=== PATIENT | male | born 1975 | race Two or more races ===

== ENCOUNTER 2021-05-04 11:00 | Inpatient (IN) | payer OTHER ==
[2021-05-04 12:04] VITALS: BMI 21.7
[2021-05-04] MEDS ORDERED: ACETAMINOPHEN 325 MG TABLET (FP) PO PRN ×2 (13:43)
[2021-05-04] MEDS ORDERED: ONDANSETRON *ODT* 4 MG TABLET SL PRN (13:43)
[2021-05-04] MEDS ORDERED: NICOTINE 10 MG CARTRIDGE (INHALER) IH PRN (13:43)
[2021-05-04] MEDS ORDERED: chlordiazePOXIDE HCL 25 MG CAPSULE PO PRN (13:43)
[2021-05-04] MEDS ORDERED: MAGNESIUM CITRATE 300 ML BOTTLE PO PRN (13:43)
[2021-05-04] MEDS ORDERED: MAGNESIUM HYDROX 2400MG/30ML ORAL SUSPENSION 30 ML CUP PO PRN (13:43)
[2021-05-04] MEDS ORDERED: MENTHOL/PHENOL 1 EACH UD MM PRN (13:43)
[2021-05-04] MEDS ORDERED: BISMUTH SUBSALICYLATE 524 MG/30 ML PO PRN (13:43)
[2021-05-04] MEDS ORDERED: MAG HYDROX/AL HYDROX/SIMETH 30 ML UNIT-DOSE CUP PO PRN (13:43)
[2021-05-04] MEDS ORDERED: LOPERAMIDE HCL 2 MG CAPSULE PO PRN (13:43)
[2021-05-04] MEDS ORDERED: IBUPROFEN 400 MG TABLET (FP) PO PRN (13:43)
[2021-05-04] MEDS: METHOCARBAMOL 500 MG TABLET PO PRN (15:13)
[2021-05-04] MEDS: BACITRACIN 0.9 GM PACKET TP SCH ×2 (15:13→22:42)
[2021-05-04] MEDS: hydrOXYzine PAMOATE 25 MG CAPSULE (FP) PO SCH ×3 (15:19→22:50)
[2021-05-04] MEDS: CEPHALEXIN MONOHYDRATE 500 MG CAPSULE (UD) PO SCH ×2 (17:40→22:40)
[2021-05-04] MEDS: chlordiazePOXIDE HCL 25 MG CAPSULE PO SCH ×2 (17:41→22:40)
[2021-05-04] MEDS: THIAMINE HCL 100 MG TABLET (FP) PO SCH (22:40)
[2021-05-04] MEDS: MELATONIN 5 MG TABLETS PO SCH (22:42)
[2021-05-05] MEDS: chlordiazePOXIDE HCL 25 MG CAPSULE PO SCH ×4 (06:12→22:12)
[2021-05-05] MEDS: hydrOXYzine PAMOATE 25 MG CAPSULE (FP) PO SCH ×5 (06:13→22:11)
[2021-05-05] MEDS: BACITRACIN 0.9 GM PACKET TP SCH ×2 (10:23→22:16)
[2021-05-05] MEDS: PRENATAL VITAMINS W/ FOLIC ACID TABLET (FP) PO SCH (10:23)
[2021-05-05] MEDS: CEPHALEXIN MONOHYDRATE 500 MG CAPSULE (UD) PO SCH ×4 (10:24→22:11)
[2021-05-05 10:26] LABS: HEMATOCRIT 36.3 % (35.4-49); HEMOGLOBIN 12.4 GM/dL (11.7-16.9); MCH 35.7 pg (25.7-33.7); MCHC 34.3 g/dl (32.0-35.9); MEAN PLT VOLUME 8.8 fl (7.5-11.1); PLATELET COUNT 208 10^3/uL (134-434); RBC 3.49 M/mm3 (4.00-5.60); RDW 13.3 % (11.9-15.9); WHITE BLOOD COUNT 3.9 K/mm3 (4.0-10.0)
[2021-05-05 11:27] LABS: ALBUMIN 3.1 g/dl (3.4-5.0); BILIRUBIN,TOTAL 0.3 mg/dL (0.2-1); CALCIUM 8.9 mg/dL (8.5-10.1); CREATININE 0.8 mg/dL (0.55-1.3); TOT PROT 5.8 g/dl (6.4-8.2)
[2021-05-05 13:10] LABS: PH,URINE 5.5 (5.0-8.0); URINE APPEARANCE CLEAR; URINE BILIRUBIN NEGATIVE (NEGATIVE); URINE COLOR YELLOW; URINE GLUCOSE (UA) NEGATIVE (NEGATIVE); URINE KETONE NEGATIVE (NEGATIVE); URINE LEUK ESTERASE NEGATIVE (NEGATIVE); URINE NITRITE NEGATIVE (NEGATIVE); URINE PROTEIN NEGATIVE (NEGATIVE); URINE UROBILINOGEN 0.2 mg/dL (0.2-1.0)
[2021-05-05] MEDS: THIAMINE HCL 100 MG TABLET (FP) PO SCH (22:11)
[2021-05-05] MEDS: MELATONIN 5 MG TABLETS PO SCH (22:12)
[2021-05-06] MEDS: hydrOXYzine PAMOATE 25 MG CAPSULE (FP) PO SCH ×5 (05:46→22:22)
[2021-05-06] MEDS: chlordiazePOXIDE HCL 25 MG CAPSULE PO SCH ×4 (05:46→22:23)
[2021-05-06 06:09] LABS: SARS-CoV-2 NAA Not Detected (Not Detected)
[2021-05-06] MEDS: PRENATAL VITAMINS W/ FOLIC ACID TABLET (FP) PO SCH (10:15)
[2021-05-06] MEDS: CEPHALEXIN MONOHYDRATE 500 MG CAPSULE (UD) PO SCH ×4 (10:15→22:23)
[2021-05-06] MEDS: BACITRACIN 0.9 GM PACKET TP SCH ×2 (10:15→22:23)
[2021-05-06] MEDS: THIAMINE HCL 100 MG TABLET (FP) PO SCH (22:22)
[2021-05-06] MEDS: MELATONIN 5 MG TABLETS PO SCH (22:23)
[2021-05-07] MEDS ORDERED: chlordiazePOXIDE HCL 10 MG CAPSULE PO PRN
[2021-05-07] MEDS: chlordiazePOXIDE HCL 10 MG CAPSULE PO SCH ×4 (05:45→22:57)
[2021-05-07] MEDS: hydrOXYzine PAMOATE 25 MG CAPSULE (FP) PO SCH ×5 (05:45→22:54)
[2021-05-07] MEDS: CEPHALEXIN MONOHYDRATE 500 MG CAPSULE (UD) PO SCH ×4 (10:49→22:55)
[2021-05-07] MEDS: BACITRACIN 0.9 GM PACKET TP SCH ×2 (10:49→22:55)
[2021-05-07] MEDS: PRENATAL VITAMINS W/ FOLIC ACID TABLET (FP) PO SCH (10:49)
[2021-05-07] MEDS: MELATONIN 5 MG TABLETS PO SCH (22:54)
[2021-05-07] MEDS: THIAMINE HCL 100 MG TABLET (FP) PO SCH (22:55)
[2021-05-08] MEDS: chlordiazePOXIDE HCL 10 MG CAPSULE PO SCH ×2 (06:14→18:26)
[2021-05-08] MEDS: hydrOXYzine PAMOATE 25 MG CAPSULE (FP) PO SCH ×5 (06:14→22:15)
[2021-05-08] MEDS: BACITRACIN 0.9 GM PACKET TP SCH ×2 (10:28→22:15)
[2021-05-08] MEDS: CEPHALEXIN MONOHYDRATE 500 MG CAPSULE (UD) PO SCH ×4 (10:28→22:15)
[2021-05-08] MEDS: PRENATAL VITAMINS W/ FOLIC ACID TABLET (FP) PO SCH (10:29)
[2021-05-08] MEDS: THIAMINE HCL 100 MG TABLET (FP) PO SCH (22:15)
[2021-05-08] MEDS: MELATONIN 5 MG TABLETS PO SCH (22:16)
[2021-05-09] MEDS ORDERED: chlordiazePOXIDE HCL 10 MG CAPSULE PO ONE (05:00)
[2021-05-09] MEDS: hydrOXYzine PAMOATE 25 MG CAPSULE (FP) PO SCH ×2 (05:10→10:34)
[2021-05-09 06:22] VITALS: BP 102/69
[2021-05-09 10:00] VITALS: PULSE 74; TEMP 97.8
[2021-05-09] MEDS: BACITRACIN 0.9 GM PACKET TP SCH (10:34)
[2021-05-09] MEDS: METHOCARBAMOL 500 MG TABLET PO PRN (10:34)
[2021-05-09] MEDS: CEPHALEXIN MONOHYDRATE 500 MG CAPSULE (UD) PO SCH (10:34)
[2021-05-09] MEDS: PRENATAL VITAMINS W/ FOLIC ACID TABLET (FP) PO SCH (10:34)
== END 2021-05-09 12:50 | disposition other institution (70) | DRG 775 ==
LOC: YASAS 11:00 → Y6N 14:35
PROVIDERS: ADMIT Allergy & Immunology; ATTEND Allergy & Immunology
PROC: HZ2ZZZZ Detoxification Services for Substance Abuse Treatment (ICD-10-PCS; principal; 2021-05-04)
DX: F10.230 Alcohol dependence with withdrawal, uncomplicated (principal); F12.10 Cannabis abuse, uncomplicated; F17.210 Nicotine dependence, cigarettes, uncomplicated; F10.282 Alcohol dependence with alcohol-induced sleep disorder; F51.05 Insomnia due to other mental disorder; S00.81XD Abrasion of other part of head, subsequent encounter; S60.221D Contusion of right hand, subsequent encounter; X58.XXXD Exposure to other specified factors, subsequent encounter; Z59.00 Homelessness unspecified; Z56.0 Unemployment, unspecified
CPT/HCPCS: 36415; 80053; 81003; 85027; 86780; 87811; 93005; 93010; C9803-CS; U0003; U0005

== ENCOUNTER 2021-05-09 13:03 | Inpatient (IN) | payer OTHER ==
[2021-05-09] MEDS ORDERED: ACETAMINOPHEN 325 MG TABLET (FP) PO PRN (14:47)
[2021-05-09] MEDS ORDERED: P-EPHED 60MG/TRIPROLIDI 2.5MG TABLET PO PRN (14:47)
[2021-05-09] MEDS ORDERED: MAG HYDROX/AL HYDROX/SIMETH 30 ML UNIT-DOSE CUP PO PRN (14:47)
[2021-05-09] MEDS ORDERED: guaiFENesin 200 MG/10 ML 10 ML UNIT-DOSE CUPS PO PRN (14:47)
[2021-05-09] MEDS ORDERED: MAGNESIUM HYDROX 2400MG/30ML ORAL SUSPENSION 30 ML CUP PO PRN (14:47)
[2021-05-09] MEDS ORDERED: MENTHOL/PHENOL 1 EACH UD MM PRN (14:47)
[2021-05-09] MEDS ORDERED: LOPERAMIDE HCL 2 MG CAPSULE PO PRN (14:47)
[2021-05-09] MEDS ORDERED: MAGNESIUM CITRATE 300 ML BOTTLE PO PRN (14:47)
[2021-05-09] MEDS: CEPHALEXIN MONOHYDRATE 500 MG CAPSULE (UD) PO SCH ×2 (17:11→21:18)
[2021-05-09] MEDS: THIAMINE HCL 100 MG TABLET (FP) PO SCH (21:18)
[2021-05-09] MEDS: MELATONIN 5 MG TABLETS PO SCH (21:18)
[2021-05-10] MEDS: CEPHALEXIN MONOHYDRATE 500 MG CAPSULE (UD) PO SCH ×4 (10:00→21:32)
[2021-05-10] MEDS: PRENATAL VITAMINS W/ FOLIC ACID TABLET (FP) PO SCH (10:00)
[2021-05-10] MEDS: MELATONIN 5 MG TABLETS PO SCH (21:32)
[2021-05-10] MEDS: THIAMINE HCL 100 MG TABLET (FP) PO SCH (21:32)
[2021-05-10] MEDS: hydrOXYzine PAMOATE 25 MG CAPSULE (FP) PO PRN (21:32)
[2021-05-11] MEDS: hydrOXYzine PAMOATE 25 MG CAPSULE (FP) PO PRN ×2 (02:21→21:17)
[2021-05-11] MEDS: PRENATAL VITAMINS W/ FOLIC ACID TABLET (FP) PO SCH (10:00)
[2021-05-11] MEDS: CEPHALEXIN MONOHYDRATE 500 MG CAPSULE (UD) PO SCH ×2 (10:00→14:19)
[2021-05-11] MEDS: NICOTINE 10 MG CARTRIDGE (INHALER) IH PRN ×2 (17:19→21:23)
[2021-05-11] MEDS: MELATONIN 5 MG TABLETS PO SCH (21:16)
[2021-05-11] MEDS: THIAMINE HCL 100 MG TABLET (FP) PO SCH (21:16)
[2021-05-12] MEDS: hydrOXYzine PAMOATE 25 MG CAPSULE (FP) PO PRN ×2 (10:15→21:20)
[2021-05-12] MEDS: PRENATAL VITAMINS W/ FOLIC ACID TABLET (FP) PO SCH (10:15)
[2021-05-12] MEDS: NICOTINE 10 MG CARTRIDGE (INHALER) IH PRN (17:08)
[2021-05-12] MEDS: THIAMINE HCL 100 MG TABLET (FP) PO SCH (21:20)
[2021-05-12] MEDS: MELATONIN 5 MG TABLETS PO SCH (21:20)
[2021-05-13] MEDS: NICOTINE 10 MG CARTRIDGE (INHALER) IH PRN ×3 (05:34→21:20)
[2021-05-13] MEDS: PRENATAL VITAMINS W/ FOLIC ACID TABLET (FP) PO SCH (10:12)
[2021-05-13] MEDS: hydrOXYzine PAMOATE 25 MG CAPSULE (FP) PO PRN (10:12)
[2021-05-13 16:09] LABS: SARS-CoV-2 NAA Not Detected (Not Detected)
[2021-05-13] MEDS: THIAMINE HCL 100 MG TABLET (FP) PO SCH (21:19)
[2021-05-13] MEDS: SUVOREXANT 10 MG TABLET PO PRN (21:20)
[2021-05-14] MEDS: PRENATAL VITAMINS W/ FOLIC ACID TABLET (FP) PO SCH (09:57)
[2021-05-14] MEDS: hydrOXYzine PAMOATE 25 MG CAPSULE (FP) PO PRN (09:57)
[2021-05-14] MEDS: IBUPROFEN 400 MG TABLET (FP) PO PRN (09:58)
[2021-05-14] MEDS: NICOTINE 10 MG CARTRIDGE (INHALER) IH PRN (15:52)
[2021-05-14] MEDS: THIAMINE HCL 100 MG TABLET (FP) PO SCH (21:08)
[2021-05-14] MEDS: SUVOREXANT 10 MG TABLET PO PRN (21:08)
[2021-05-15] MEDS: hydrOXYzine PAMOATE 25 MG CAPSULE (FP) PO PRN ×3 (06:18→16:38)
[2021-05-15] MEDS: PRENATAL VITAMINS W/ FOLIC ACID TABLET (FP) PO SCH (10:07)
[2021-05-15] MEDS: NICOTINE 10 MG CARTRIDGE (INHALER) IH PRN (16:37)
[2021-05-15] MEDS: THIAMINE HCL 100 MG TABLET (FP) PO SCH (21:14)
[2021-05-15] MEDS: SUVOREXANT 10 MG TABLET PO PRN (21:14)
[2021-05-16] MEDS: NICOTINE 10 MG CARTRIDGE (INHALER) IH PRN ×2 (07:14→21:11)
[2021-05-16] MEDS: PRENATAL VITAMINS W/ FOLIC ACID TABLET (FP) PO SCH (10:41)
[2021-05-16] MEDS: hydrOXYzine PAMOATE 25 MG CAPSULE (FP) PO PRN ×2 (10:42→21:12)
[2021-05-16] MEDS: METHOCARBAMOL 500 MG TABLET PO PRN ×2 (14:25→21:12)
[2021-05-16] MEDS: THIAMINE HCL 100 MG TABLET (FP) PO SCH (21:11)
[2021-05-16] MEDS: SUVOREXANT 10 MG TABLET PO PRN (21:12)
[2021-05-17] MEDS: PRENATAL VITAMINS W/ FOLIC ACID TABLET (FP) PO SCH (10:08)
[2021-05-17] MEDS: hydrOXYzine PAMOATE 25 MG CAPSULE (FP) PO PRN ×3 (10:08→21:39)
[2021-05-17] MEDS: METHOCARBAMOL 500 MG TABLET PO PRN ×3 (10:08→21:40)
[2021-05-17] MEDS: NICOTINE 10 MG CARTRIDGE (INHALER) IH PRN (15:38)
[2021-05-17] MEDS: THIAMINE HCL 100 MG TABLET (FP) PO SCH (21:39)
[2021-05-17] MEDS: SUVOREXANT 10 MG TABLET PO PRN (21:40)
[2021-05-18] MEDS: NICOTINE 10 MG CARTRIDGE (INHALER) IH PRN ×3 (06:36→21:25)
[2021-05-18] MEDS: hydrOXYzine PAMOATE 25 MG CAPSULE (FP) PO PRN ×2 (09:58→15:57)
[2021-05-18] MEDS: METHOCARBAMOL 500 MG TABLET PO PRN ×3 (09:58→21:25)
[2021-05-18] MEDS: PRENATAL VITAMINS W/ FOLIC ACID TABLET (FP) PO SCH (09:58)
[2021-05-18] MEDS: THIAMINE HCL 100 MG TABLET (FP) PO SCH (21:23)
[2021-05-18] MEDS: SUVOREXANT 10 MG TABLET PO PRN (21:24)
[2021-05-19] MEDS: METHOCARBAMOL 500 MG TABLET PO PRN ×3 (06:54→21:11)
[2021-05-19] MEDS: PRENATAL VITAMINS W/ FOLIC ACID TABLET (FP) PO SCH (10:32)
[2021-05-19] MEDS: hydrOXYzine PAMOATE 25 MG CAPSULE (FP) PO PRN ×3 (10:33→23:19)
[2021-05-19] MEDS: NICOTINE 10 MG CARTRIDGE (INHALER) IH PRN ×2 (10:35→15:16)
[2021-05-19] MEDS: THIAMINE HCL 100 MG TABLET (FP) PO SCH (21:10)
[2021-05-19] MEDS: SUVOREXANT 10 MG TABLET PO PRN (21:11)
[2021-05-20] MEDS: PRENATAL VITAMINS W/ FOLIC ACID TABLET (FP) PO SCH (09:12)
[2021-05-20] MEDS: METHOCARBAMOL 500 MG TABLET PO PRN ×4 (09:14→21:18)
[2021-05-20] MEDS: hydrOXYzine PAMOATE 25 MG CAPSULE (FP) PO PRN ×3 (09:14→21:17)
[2021-05-20] MEDS: NICOTINE 10 MG CARTRIDGE (INHALER) IH PRN ×4 (10:55→22:04)
[2021-05-20] MEDS: IBUPROFEN 400 MG TABLET (FP) PO PRN (15:56)
[2021-05-20] MEDS: SUVOREXANT 10 MG TABLET PO PRN (21:17)
[2021-05-20] MEDS: THIAMINE HCL 100 MG TABLET (FP) PO SCH (21:17)
[2021-05-21] MEDS: NICOTINE 10 MG CARTRIDGE (INHALER) IH PRN ×3 (08:35→21:13)
[2021-05-21] MEDS: hydrOXYzine PAMOATE 25 MG CAPSULE (FP) PO PRN ×2 (10:04→21:12)
[2021-05-21] MEDS: PRENATAL VITAMINS W/ FOLIC ACID TABLET (FP) PO SCH (10:04)
[2021-05-21] MEDS: METHOCARBAMOL 500 MG TABLET PO PRN (21:12)
[2021-05-21] MEDS: THIAMINE HCL 100 MG TABLET (FP) PO SCH (21:12)
[2021-05-21] MEDS: SUVOREXANT 10 MG TABLET PO PRN (21:12)
[2021-05-22] MEDS: NICOTINE 10 MG CARTRIDGE (INHALER) IH PRN ×2 (08:19→19:57)
[2021-05-22] MEDS ORDERED: MINERAL OIL/PETROLAT/WATER TOPICAL CREAM 113 GM JAR TP PRN (08:45)
[2021-05-22] MEDS: METHOCARBAMOL 500 MG TABLET PO PRN ×3 (10:19→21:28)
[2021-05-22] MEDS: hydrOXYzine PAMOATE 25 MG CAPSULE (FP) PO PRN ×3 (10:19→21:28)
[2021-05-22] MEDS: PRENATAL VITAMINS W/ FOLIC ACID TABLET (FP) PO SCH (10:19)
[2021-05-22] MEDS: BACITRACIN 0.9 GM PACKET TP SCH ×2 (10:20→21:27)
[2021-05-22] MEDS: THIAMINE HCL 100 MG TABLET (FP) PO SCH (21:47)
[2021-05-23] MEDS: SUVOREXANT 10 MG TABLET PO PRN ×2 (00:03→21:13)
[2021-05-23] MEDS: hydrOXYzine PAMOATE 25 MG CAPSULE (FP) PO PRN (06:43)
[2021-05-23] MEDS: METHOCARBAMOL 500 MG TABLET PO PRN ×3 (09:48→21:13)
[2021-05-23] MEDS: PRENATAL VITAMINS W/ FOLIC ACID TABLET (FP) PO SCH (09:48)
[2021-05-23] MEDS: BACITRACIN 0.9 GM PACKET TP SCH ×2 (09:48→21:13)
[2021-05-23] MEDS: NICOTINE 10 MG CARTRIDGE (INHALER) IH PRN ×2 (12:10→15:58)
[2021-05-23] MEDS: THIAMINE HCL 100 MG TABLET (FP) PO SCH (21:13)
[2021-05-24] MEDS: NICOTINE 10 MG CARTRIDGE (INHALER) IH PRN ×3 (06:28→21:23)
[2021-05-24] MEDS: METHOCARBAMOL 500 MG TABLET PO PRN ×3 (07:33→21:02)
[2021-05-24] MEDS: PRENATAL VITAMINS W/ FOLIC ACID TABLET (FP) PO SCH (09:12)
[2021-05-24] MEDS: hydrOXYzine PAMOATE 25 MG CAPSULE (FP) PO PRN ×2 (09:13→13:34)
[2021-05-24] MEDS: BACITRACIN 0.9 GM PACKET TP SCH ×2 (09:14→21:03)
[2021-05-24] MEDS: THIAMINE HCL 100 MG TABLET (FP) PO SCH (21:02)
[2021-05-24] MEDS: SUVOREXANT 10 MG TABLET PO PRN (21:23)
[2021-05-25] MEDS: hydrOXYzine PAMOATE 25 MG CAPSULE (FP) PO PRN ×3 (00:54→21:16)
[2021-05-25] MEDS: METHOCARBAMOL 500 MG TABLET PO PRN ×2 (08:47→16:56)
[2021-05-25] MEDS: BACITRACIN 0.9 GM PACKET TP SCH ×2 (10:10→21:16)
[2021-05-25] MEDS: PRENATAL VITAMINS W/ FOLIC ACID TABLET (FP) PO SCH (10:10)
[2021-05-25] MEDS: NICOTINE 10 MG CARTRIDGE (INHALER) IH PRN ×3 (10:27→20:44)
[2021-05-25] MEDS: SUVOREXANT 10 MG TABLET PO PRN (21:16)
[2021-05-25] MEDS: THIAMINE HCL 100 MG TABLET (FP) PO SCH (21:16)
[2021-05-26] MEDS: NICOTINE 10 MG CARTRIDGE (INHALER) IH PRN ×4 (06:45→16:18)
[2021-05-26] MEDS: METHOCARBAMOL 500 MG TABLET PO PRN ×2 (10:31→13:47)
[2021-05-26] MEDS: BACITRACIN 0.9 GM PACKET TP SCH ×2 (10:31→21:21)
[2021-05-26] MEDS: hydrOXYzine PAMOATE 25 MG CAPSULE (FP) PO PRN ×3 (10:31→21:20)
[2021-05-26] MEDS: PRENATAL VITAMINS W/ FOLIC ACID TABLET (FP) PO SCH (10:31)
[2021-05-26] MEDS: THIAMINE HCL 100 MG TABLET (FP) PO SCH (21:20)
[2021-05-27] MEDS: METHOCARBAMOL 500 MG TABLET PO PRN ×2 (06:09→09:49)
[2021-05-27] MEDS: NICOTINE 10 MG CARTRIDGE (INHALER) IH PRN ×5 (06:09→21:32)
[2021-05-27] MEDS: PRENATAL VITAMINS W/ FOLIC ACID TABLET (FP) PO SCH (09:49)
[2021-05-27] MEDS: BACITRACIN 0.9 GM PACKET TP SCH ×2 (09:49→21:32)
[2021-05-27] MEDS: hydrOXYzine PAMOATE 25 MG CAPSULE (FP) PO PRN (09:49)
[2021-05-27] MEDS: hydrOXYzine PAMOATE 50 MG CAPSULE (FP) PO PRN (13:26)
[2021-05-27] MEDS: THIAMINE HCL 100 MG TABLET (FP) PO SCH (21:32)
[2021-05-28] MEDS: NICOTINE 10 MG CARTRIDGE (INHALER) IH PRN ×5 (06:44→21:19)
[2021-05-28] MEDS: METHOCARBAMOL 500 MG TABLET PO PRN (09:19)
[2021-05-28] MEDS: BACITRACIN 0.9 GM PACKET TP SCH ×2 (09:19→21:18)
[2021-05-28] MEDS: PRENATAL VITAMINS W/ FOLIC ACID TABLET (FP) PO SCH (09:19)
[2021-05-28] MEDS: hydrOXYzine PAMOATE 50 MG CAPSULE (FP) PO PRN ×2 (09:19→21:19)
[2021-05-28] MEDS: THIAMINE HCL 100 MG TABLET (FP) PO SCH (21:18)
[2021-05-28] MEDS: MELATONIN 5 MG TABLETS PO PRN (21:18)
[2021-05-29] MEDS: NICOTINE 10 MG CARTRIDGE (INHALER) IH PRN ×5 (06:51→21:39)
[2021-05-29] MEDS: BACITRACIN 0.9 GM PACKET TP SCH ×2 (09:55→21:24)
[2021-05-29] MEDS: PRENATAL VITAMINS W/ FOLIC ACID TABLET (FP) PO SCH (09:55)
[2021-05-29] MEDS: METHOCARBAMOL 500 MG TABLET PO PRN ×2 (09:57→19:21)
[2021-05-29] MEDS: THIAMINE HCL 100 MG TABLET (FP) PO SCH (21:24)
[2021-05-29] MEDS: MELATONIN 5 MG TABLETS PO PRN (21:24)
[2021-05-29] MEDS: hydrOXYzine PAMOATE 50 MG CAPSULE (FP) PO PRN (21:25)
[2021-05-30] MEDS: NICOTINE 10 MG CARTRIDGE (INHALER) IH PRN ×6 (07:14→21:10)
[2021-05-30] MEDS: BACITRACIN 0.9 GM PACKET TP SCH ×2 (09:31→21:10)
[2021-05-30] MEDS: PRENATAL VITAMINS W/ FOLIC ACID TABLET (FP) PO SCH (09:31)
[2021-05-30] MEDS: hydrOXYzine PAMOATE 50 MG CAPSULE (FP) PO PRN ×2 (09:32→21:12)
[2021-05-30] MEDS: METHOCARBAMOL 500 MG TABLET PO PRN ×2 (09:33→17:09)
[2021-05-30] MEDS: THIAMINE HCL 100 MG TABLET (FP) PO SCH (21:11)
[2021-05-30] MEDS: MELATONIN 5 MG TABLETS PO PRN (21:11)
[2021-05-31] MEDS: NICOTINE 10 MG CARTRIDGE (INHALER) IH PRN ×4 (07:10→21:20)
[2021-05-31] MEDS: PRENATAL VITAMINS W/ FOLIC ACID TABLET (FP) PO SCH (10:30)
[2021-05-31] MEDS: BACITRACIN 0.9 GM PACKET TP SCH ×2 (10:30→21:19)
[2021-05-31] MEDS: hydrOXYzine PAMOATE 50 MG CAPSULE (FP) PO PRN ×3 (10:30→21:19)
[2021-05-31] MEDS: METHOCARBAMOL 500 MG TABLET PO PRN (10:30)
[2021-05-31] MEDS: MELATONIN 5 MG TABLETS PO PRN (21:19)
[2021-05-31] MEDS: THIAMINE HCL 100 MG TABLET (FP) PO SCH (21:19)
[2021-06-01] MEDS: NICOTINE 10 MG CARTRIDGE (INHALER) IH PRN ×2 (07:16→15:55)
[2021-06-01] MEDS: BACITRACIN 0.9 GM PACKET TP SCH ×2 (10:19→21:22)
[2021-06-01] MEDS: PRENATAL VITAMINS W/ FOLIC ACID TABLET (FP) PO SCH (10:19)
[2021-06-01] MEDS: METHOCARBAMOL 500 MG TABLET PO PRN (10:20)
[2021-06-01] MEDS: hydrOXYzine PAMOATE 50 MG CAPSULE (FP) PO PRN ×3 (10:20→21:22)
[2021-06-01] MEDS: THIAMINE HCL 100 MG TABLET (FP) PO SCH (21:22)
[2021-06-01] MEDS: MELATONIN 5 MG TABLETS PO PRN (21:22)
[2021-06-02] MEDS: NICOTINE 10 MG CARTRIDGE (INHALER) IH PRN ×4 (06:26→21:11)
[2021-06-02] MEDS: METHOCARBAMOL 500 MG TABLET PO PRN (06:39)
[2021-06-02] MEDS: hydrOXYzine PAMOATE 50 MG CAPSULE (FP) PO PRN ×2 (06:39→21:10)
[2021-06-02] MEDS: PRENATAL VITAMINS W/ FOLIC ACID TABLET (FP) PO SCH (10:22)
[2021-06-02] MEDS: BACITRACIN 0.9 GM PACKET TP SCH ×2 (10:22→21:10)
[2021-06-02] MEDS: MELATONIN 5 MG TABLETS PO PRN (21:10)
[2021-06-02] MEDS: THIAMINE HCL 100 MG TABLET (FP) PO SCH (21:10)
[2021-06-03] MEDS: NICOTINE 10 MG CARTRIDGE (INHALER) IH PRN ×5 (06:28→21:15)
[2021-06-03] MEDS: BACITRACIN 0.9 GM PACKET TP SCH ×2 (09:52→21:14)
[2021-06-03] MEDS: PRENATAL VITAMINS W/ FOLIC ACID TABLET (FP) PO SCH (09:52)
[2021-06-03] MEDS: hydrOXYzine PAMOATE 50 MG CAPSULE (FP) PO PRN ×2 (09:54→21:14)
[2021-06-03] MEDS: METHOCARBAMOL 500 MG TABLET PO PRN ×2 (09:54→21:15)
[2021-06-03] MEDS: THIAMINE HCL 100 MG TABLET (FP) PO SCH (21:14)
[2021-06-03] MEDS: MELATONIN 5 MG TABLETS PO PRN (21:14)
[2021-06-04] MEDS: NICOTINE 10 MG CARTRIDGE (INHALER) IH PRN ×3 (08:06→21:13)
[2021-06-04] MEDS: BACITRACIN 0.9 GM PACKET TP SCH ×2 (10:31→21:14)
[2021-06-04] MEDS: PRENATAL VITAMINS W/ FOLIC ACID TABLET (FP) PO SCH (10:31)
[2021-06-04] MEDS: hydrOXYzine PAMOATE 50 MG CAPSULE (FP) PO PRN ×2 (10:32→21:14)
[2021-06-04] MEDS: METHOCARBAMOL 500 MG TABLET PO PRN ×2 (10:32→21:14)
[2021-06-04] MEDS: MELATONIN 5 MG TABLETS PO PRN (21:13)
[2021-06-04] MEDS: THIAMINE HCL 100 MG TABLET (FP) PO SCH (21:13)
[2021-06-05] MEDS: NICOTINE 10 MG CARTRIDGE (INHALER) IH PRN ×3 (06:17→15:48)
[2021-06-05] MEDS: METHOCARBAMOL 500 MG TABLET PO PRN ×2 (06:17→21:11)
[2021-06-05] MEDS: hydrOXYzine PAMOATE 50 MG CAPSULE (FP) PO PRN ×2 (06:17→21:10)
[2021-06-05] MEDS: BACITRACIN 0.9 GM PACKET TP SCH ×2 (10:11→21:10)
[2021-06-05] MEDS: PRENATAL VITAMINS W/ FOLIC ACID TABLET (FP) PO SCH (10:11)
[2021-06-05] MEDS: THIAMINE HCL 100 MG TABLET (FP) PO SCH (21:10)
[2021-06-05] MEDS: MELATONIN 5 MG TABLETS PO PRN (21:10)
[2021-06-06] MEDS: NICOTINE 10 MG CARTRIDGE (INHALER) IH PRN ×2 (06:03→10:04)
[2021-06-06 07:02] VITALS: TEMP 97.6
[2021-06-06] MEDS: hydrOXYzine PAMOATE 50 MG CAPSULE (FP) PO PRN (09:20)
[2021-06-06] MEDS: METHOCARBAMOL 500 MG TABLET PO PRN (09:21)
[2021-06-06] MEDS: BACITRACIN 0.9 GM PACKET TP SCH (09:21)
[2021-06-06] MEDS: PRENATAL VITAMINS W/ FOLIC ACID TABLET (FP) PO SCH (09:21)
[2021-06-06 09:31] VITALS: BP 144/86; PULSE 86
== END 2021-06-06 10:24 | disposition home or self-care (01) | DRG 772 ==
LOC: YASAS 13:03 → Y3W 13:04
PROVIDERS: ADMIT Allergy & Immunology; ATTEND Allergy & Immunology
PROC: HZ42ZZZ Group Counseling for Substance Abuse Treatment, Cognitive-Behavioral (ICD-10-PCS; principal; 2021-05-09)
DX: F10.20 Alcohol dependence, uncomplicated (principal); F12.20 Cannabis dependence, uncomplicated; F17.210 Nicotine dependence, cigarettes, uncomplicated; F10.282 Alcohol dependence with alcohol-induced sleep disorder; G47.00 Insomnia, unspecified; Z56.0 Unemployment, unspecified; Z59.00 Homelessness unspecified
CPT/HCPCS: C9803-CS; U0003; U0005

== ENCOUNTER 2022-06-29 14:13 | Inpatient (IN) | payer OTHER ==
[2022-06-29 17:00] VITALS: BMI 22.8
[2022-06-29] MEDS ORDERED: BENZOCAINE/MENTHOL (CHLORASEPTIC ) LOZENGE MM PRN (18:16)
[2022-06-29] MEDS ORDERED: MAGNESIUM HYDROX 2400MG/30ML ORAL SUSPENSION 30 ML CUP PO PRN (18:16)
[2022-06-29] MEDS ORDERED: POLYETHYLENE GLYCOL (HEALTHYLAX) 3350 17 GM PACKET PO PRN (18:16)
[2022-06-29] MEDS ORDERED: COLLOIDAL OATMEAL 1 BAR EACH TP PRN (18:16)
[2022-06-29] MEDS ORDERED: guaiFENesin 600 MG TABLET.ER (FP) PO PRN (18:16)
[2022-06-29] MEDS ORDERED: LOPERAMIDE HCL 2 MG CAPSULE PO PRN (18:16)
[2022-06-29] MEDS ORDERED: IBUPROFEN 600 MG TABLET (FP) PO PRN (18:16)
[2022-06-29] MEDS ORDERED: ACETAMINOPHEN 325 MG TABLET (FP) PO PRN (18:16)
[2022-06-29] MEDS ORDERED: NICOTINE POLACRILEX 2 MG GUM BUC PRN (18:16)
[2022-06-29] MEDS ORDERED: MAG HYDROX/AL HYDROX/SIMETH 30 ML UNIT-DOSE CUP PO PRN (18:16)
[2022-06-29] MEDS ORDERED: IBUPROFEN 400 MG TABLET (FP) PO PRN (18:16)
[2022-06-29] MEDS ORDERED: NALOXONE HCL (KLOXXADO) 8 MG SPRAY NS PRN (18:16)
[2022-06-29] MEDS ORDERED: NALOXONE HCL 0.4 MG/ML VIAL IVPUSH PRN (18:16)
[2022-06-29] MEDS ORDERED: AMMONIUM LACTATE 12% LOTION 225 GM BOTTLE TP PRN (18:16)
[2022-06-29] MEDS ORDERED: BENZONATATE 200 MG CAPSULE PO PRN (18:16)
[2022-06-29] MEDS: THIAMINE HCL 100 MG TABLET (FP) PO SCH (21:02)
[2022-06-29] MEDS: LIDOCAINE PATCH REMOVAL MC SCH (21:43)
[2022-06-29] MEDS ORDERED: MELATONIN 5 MG TABLETS PO SCH (22:00)
[2022-06-30] MEDS: LIDOCAINE 5% TOPICAL PATCH TP SCH (11:17)
[2022-06-30] MEDS: PRENATAL VITAMINS W/ FOLIC ACID TABLET (FP) PO SCH (11:17)
[2022-06-30] MEDS: NICOTINE 14 MG/24 HOURS TOPICAL PATCH TD SCH (11:17)
[2022-06-30] MEDS: THIAMINE HCL 100 MG TABLET (FP) PO SCH (21:22)
[2022-06-30] MEDS: MELATONIN 5 MG TABLETS PO SCH (21:22)
[2022-06-30] MEDS: LIDOCAINE PATCH REMOVAL MC SCH (21:23)
[2022-07-01] MEDS: NICOTINE 14 MG/24 HOURS TOPICAL PATCH TD SCH (09:50)
[2022-07-01] MEDS: PRENATAL VITAMINS W/ FOLIC ACID TABLET (FP) PO SCH (09:50)
[2022-07-01] MEDS: LIDOCAINE 5% TOPICAL PATCH TP SCH (09:51)
[2022-07-01] MEDS: THIAMINE HCL 100 MG TABLET (FP) PO SCH (21:27)
[2022-07-01] MEDS: MELATONIN 5 MG TABLETS PO SCH (21:27)
[2022-07-01] MEDS: LIDOCAINE PATCH REMOVAL MC SCH (21:27)
[2022-07-02] MEDS: LIDOCAINE 5% TOPICAL PATCH TP SCH (11:02)
[2022-07-02] MEDS: NICOTINE 14 MG/24 HOURS TOPICAL PATCH TD SCH (11:03)
[2022-07-02] MEDS: PRENATAL VITAMINS W/ FOLIC ACID TABLET (FP) PO SCH (11:03)
[2022-07-02] MEDS: THIAMINE HCL 100 MG TABLET (FP) PO SCH (21:20)
[2022-07-02] MEDS: MELATONIN 5 MG TABLETS PO SCH (21:20)
[2022-07-02] MEDS: LIDOCAINE PATCH REMOVAL MC SCH (21:21)
[2022-07-03] MEDS: LIDOCAINE 5% TOPICAL PATCH TP SCH (09:30)
[2022-07-03] MEDS: NICOTINE 14 MG/24 HOURS TOPICAL PATCH TD SCH (09:31)
[2022-07-03] MEDS: PRENATAL VITAMINS W/ FOLIC ACID TABLET (FP) PO SCH (09:31)
[2022-07-03] MEDS: NICOTINE 10 MG CARTRIDGE (INHALER) IH PRN (12:16)
[2022-07-03] MEDS: THIAMINE HCL 100 MG TABLET (FP) PO SCH (21:41)
[2022-07-03] MEDS: MELATONIN 5 MG TABLETS PO SCH (21:41)
[2022-07-03] MEDS: LIDOCAINE PATCH REMOVAL MC SCH (21:42)
[2022-07-04] MEDS: NICOTINE 14 MG/24 HOURS TOPICAL PATCH TD SCH (09:24)
[2022-07-04] MEDS: PRENATAL VITAMINS W/ FOLIC ACID TABLET (FP) PO SCH (09:24)
[2022-07-04] MEDS: LIDOCAINE 5% TOPICAL PATCH TP SCH (09:25)
[2022-07-04] MEDS: LIDOCAINE PATCH REMOVAL MC SCH (21:05)
[2022-07-04] MEDS: THIAMINE HCL 100 MG TABLET (FP) PO SCH (21:05)
[2022-07-04] MEDS: MELATONIN 5 MG TABLETS PO SCH (21:05)
[2022-07-05] MEDS: LIDOCAINE 5% TOPICAL PATCH TP SCH (10:14)
[2022-07-05] MEDS: NICOTINE 14 MG/24 HOURS TOPICAL PATCH TD SCH (10:14)
[2022-07-05] MEDS: PRENATAL VITAMINS W/ FOLIC ACID TABLET (FP) PO SCH (10:14)
[2022-07-05] MEDS: LIDOCAINE PATCH REMOVAL MC SCH (21:09)
[2022-07-05] MEDS: THIAMINE HCL 100 MG TABLET (FP) PO SCH (21:09)
[2022-07-05] MEDS: MELATONIN 5 MG TABLETS PO SCH (21:09)
[2022-07-06] MEDS: LIDOCAINE 5% TOPICAL PATCH TP SCH (09:34)
[2022-07-06] MEDS: NICOTINE 14 MG/24 HOURS TOPICAL PATCH TD SCH (09:34)
[2022-07-06] MEDS: PRENATAL VITAMINS W/ FOLIC ACID TABLET (FP) PO SCH (09:35)
[2022-07-06] MEDS ORDERED: BACLOFEN 10 MG TABLET (FP) PO PRN (10:30)
[2022-07-06] MEDS: THIAMINE HCL 100 MG TABLET (FP) PO SCH (21:05)
[2022-07-06] MEDS: LIDOCAINE PATCH REMOVAL MC SCH (21:05)
[2022-07-06] MEDS: MELATONIN 5 MG TABLETS PO SCH (21:05)
[2022-07-07] MEDS: LIDOCAINE 5% TOPICAL PATCH TP SCH (10:17)
[2022-07-07] MEDS: PRENATAL VITAMINS W/ FOLIC ACID TABLET (FP) PO SCH (10:18)
[2022-07-07] MEDS: NICOTINE 14 MG/24 HOURS TOPICAL PATCH TD SCH (10:18)
[2022-07-07] MEDS: MELATONIN 5 MG TABLETS PO SCH (21:10)
[2022-07-07] MEDS: THIAMINE HCL 100 MG TABLET (FP) PO SCH (21:10)
[2022-07-07] MEDS: LIDOCAINE PATCH REMOVAL MC SCH (21:11)
[2022-07-08] MEDS: LIDOCAINE 5% TOPICAL PATCH TP SCH (09:36)
[2022-07-08] MEDS: NICOTINE 14 MG/24 HOURS TOPICAL PATCH TD SCH (09:36)
[2022-07-08] MEDS: PRENATAL VITAMINS W/ FOLIC ACID TABLET (FP) PO SCH (09:36)
[2022-07-08 11:33] LABS: BASO % 0.3 % (0-2.0); EOS % 2.5 % (0-4.5); HEMATOCRIT 36.4 % (35.4-49); HEMOGLOBIN 12.3 GM/dL (11.7-16.9); LYMPH % 49.2 % (8-40); MCH 34.2 pg (25.7-33.7); MCHC 33.7 g/dl (32.0-35.9); MEAN CELL VOLUME 101.6 fl (80-96); MEAN PLT VOLUME 8.5 fl (7.5-11.1); MONO % 11.7 % (3.8-10.2); NEUT % 36.3 % (42.8-82.8); PLATELET COUNT 258 10^3/uL (134-434); RBC 3.58 M/mm3 (4.00-5.60); RDW 13.4 % (11.9-15.9); WHITE BLOOD COUNT 5.6 K/mm3 (4.0-10.0)
[2022-07-08 11:54] LABS: POTASSIUM 4.4 mmol/L (3.5-5.1)
[2022-07-08 12:03] LABS: ALBUMIN 3.4 g/dl (3.4-5.0); CALCIUM 9.6 mg/dL (8.5-10.1)
[2022-07-08 12:04] LABS: BLOOD UREA NITROGEN 11.9 mg/dL (7-18)
[2022-07-08 12:07] LABS: CREATININE 0.9 mg/dL (0.55-1.3); TOT PROT 6.7 g/dl (6.4-8.2)
[2022-07-08 12:08] LABS: BILIRUBIN,TOTAL 0.4 mg/dL (0.2-1)
[2022-07-08] MEDS: THIAMINE HCL 100 MG TABLET (FP) PO SCH (21:12)
[2022-07-08] MEDS: MELATONIN 5 MG TABLETS PO SCH (21:12)
[2022-07-08] MEDS: LIDOCAINE PATCH REMOVAL MC SCH (21:12)
[2022-07-09] MEDS: PRENATAL VITAMINS W/ FOLIC ACID TABLET (FP) PO SCH (09:42)
[2022-07-09] MEDS: NICOTINE 14 MG/24 HOURS TOPICAL PATCH TD SCH (09:42)
[2022-07-09] MEDS: LIDOCAINE 5% TOPICAL PATCH TP SCH (09:42)
[2022-07-09] MEDS: MELATONIN 5 MG TABLETS PO SCH (21:21)
[2022-07-09] MEDS: THIAMINE HCL 100 MG TABLET (FP) PO SCH (21:21)
[2022-07-09] MEDS: LIDOCAINE PATCH REMOVAL MC SCH (21:22)
[2022-07-10] MEDS: LIDOCAINE 5% TOPICAL PATCH TP SCH (09:50)
[2022-07-10] MEDS: PRENATAL VITAMINS W/ FOLIC ACID TABLET (FP) PO SCH (09:50)
[2022-07-10] MEDS: NICOTINE 14 MG/24 HOURS TOPICAL PATCH TD SCH (09:50)
[2022-07-10] MEDS: TETRAHYDROZOLINE HCL EYE DROPS OU PRN (09:51)
[2022-07-10] MEDS: LIDOCAINE PATCH REMOVAL MC SCH (21:02)
[2022-07-10] MEDS: THIAMINE HCL 100 MG TABLET (FP) PO SCH (21:02)
[2022-07-10] MEDS: MELATONIN 5 MG TABLETS PO SCH (21:02)
[2022-07-11] MEDS: PRENATAL VITAMINS W/ FOLIC ACID TABLET (FP) PO SCH (10:45)
[2022-07-11] MEDS: LIDOCAINE 5% TOPICAL PATCH TP SCH (10:46)
[2022-07-11] MEDS: NICOTINE 14 MG/24 HOURS TOPICAL PATCH TD SCH (10:46)
[2022-07-11 11:21] LABS: SYPHILIS W/ RPR CONF NON-REACTIVE (NONREACTIVE)
[2022-07-11 11:50] LABS: HIV INTERPRETATION NEGATIVE (NEGATIVE)
[2022-07-11] MEDS: TETRAHYDROZOLINE HCL EYE DROPS OU PRN (17:29)
[2022-07-11] MEDS: LIDOCAINE PATCH REMOVAL MC SCH (21:06)
[2022-07-11] MEDS: THIAMINE HCL 100 MG TABLET (FP) PO SCH (21:07)
[2022-07-11] MEDS: MELATONIN 5 MG TABLETS PO SCH (21:07)
[2022-07-12] MEDS: LIDOCAINE 5% TOPICAL PATCH TP SCH (09:50)
[2022-07-12] MEDS: NICOTINE 14 MG/24 HOURS TOPICAL PATCH TD SCH (09:50)
[2022-07-12] MEDS: PRENATAL VITAMINS W/ FOLIC ACID TABLET (FP) PO SCH (09:50)
[2022-07-12] MEDS: THIAMINE HCL 100 MG TABLET (FP) PO SCH (21:29)
[2022-07-12] MEDS: LIDOCAINE PATCH REMOVAL MC SCH (21:30)
[2022-07-12] MEDS: MELATONIN 5 MG TABLETS PO SCH (21:30)
[2022-07-13] MEDS: NICOTINE 10 MG CARTRIDGE (INHALER) IH PRN (06:49)
[2022-07-13 06:57] VITALS: BP 135/94; PULSE 79; RESP 17; TEMP 97.7
[2022-07-13] MEDS: PRENATAL VITAMINS W/ FOLIC ACID TABLET (FP) PO SCH (09:42)
[2022-07-13] MEDS: LIDOCAINE 5% TOPICAL PATCH TP SCH (09:42)
[2022-07-13] MEDS: NICOTINE 14 MG/24 HOURS TOPICAL PATCH TD SCH (09:42)
== END 2022-07-13 09:58 | disposition home or self-care (01) | DRG 772 ==
LOC: YASAS 14:13 → Y3W 19:09
PROVIDERS: ADMIT Allergy & Immunology; ATTEND Psychiatry & Neurology Pain Medicine
PROC: HZ42ZZZ Group Counseling for Substance Abuse Treatment, Cognitive-Behavioral (ICD-10-PCS; principal; 2022-06-29)
DX: F10.20 Alcohol dependence, uncomplicated (principal); F19.282 Other psychoactive substance dependence with psychoactive substance-induced sleep disorder; F12.10 Cannabis abuse, uncomplicated; F17.210 Nicotine dependence, cigarettes, uncomplicated; F10.282 Alcohol dependence with alcohol-induced sleep disorder; G47.00 Insomnia, unspecified; H91.92 Unspecified hearing loss, left ear; Z87.820 Personal history of traumatic brain injury; S09.90XD Unspecified injury of head, subsequent encounter; W10.9XXD Fall (on) (from) unspecified stairs and steps, subsequent encounter; Z59.00 Homelessness unspecified; Z56.0 Unemployment, unspecified
CPT/HCPCS: 36415; 80053; 82607; 82746; 84443; 85025; 86780; 86803; 87389; 87522; 87811

== ENCOUNTER 2022-07-31 13:41 | Inpatient (IN) | payer OTHER ==
[2022-07-31 14:05] VITALS: BMI 23.4
[2022-07-31] MEDS ORDERED: IBUPROFEN 400 MG TABLET (FP) PO PRN (18:36)
[2022-07-31] MEDS ORDERED: MAGNESIUM HYDROX 2400MG/30ML ORAL SUSPENSION 30 ML CUP PO PRN (18:36)
[2022-07-31] MEDS ORDERED: IBUPROFEN 600 MG TABLET (FP) PO PRN (18:36)
[2022-07-31] MEDS ORDERED: guaiFENesin 600 MG TABLET.ER (FP) PO PRN (18:36)
[2022-07-31] MEDS ORDERED: BENZOCAINE/MENTHOL (CHLORASEPTIC ) LOZENGE MM PRN (18:36)
[2022-07-31] MEDS ORDERED: BISMUTH SUBSALICYLATE 524 MG/30 ML PO PRN (18:36)
[2022-07-31] MEDS ORDERED: NALOXONE HCL 0.4 MG/ML VIAL IM PRN (18:36)
[2022-07-31] MEDS ORDERED: NALOXONE HCL (KLOXXADO) 8 MG SPRAY NS PRN (18:36)
[2022-07-31] MEDS ORDERED: LOPERAMIDE HCL 2 MG CAPSULE PO PRN (18:36)
[2022-07-31] MEDS ORDERED: BENZONATATE 200 MG CAPSULE PO PRN (18:36)
[2022-07-31] MEDS ORDERED: MAG HYDROX/AL HYDROX/SIMETH 30 ML UNIT-DOSE CUP PO PRN (18:36)
[2022-07-31] MEDS ORDERED: chlordiazePOXIDE HCL 25 MG CAPSULE PO PRN (18:36)
[2022-07-31] MEDS ORDERED: ONDANSETRON *ODT* 4 MG TABLET SL PRN (18:36)
[2022-07-31] MEDS ORDERED: ACETAMINOPHEN 325 MG TABLET (FP) PO PRN (18:36)
[2022-07-31] MEDS ORDERED: DICYCLOMINE HCL 10 MG CAPSULE PO PRN (18:36)
[2022-07-31] MEDS ORDERED: NICOTINE 10 MG CARTRIDGE (INHALER) IH PRN (18:36)
[2022-07-31] MEDS ORDERED: POLYETHYLENE GLYCOL (HEALTHYLAX) 3350 17 GM PACKET PO PRN (18:36)
[2022-07-31] MEDS ORDERED: PRENATAL VITAMINS W/ FOLIC ACID TABLET (FP) PO ONE (20:07)
[2022-07-31] MEDS: PRENATAL VITAMINS W/ FOLIC ACID TABLET (FP) PO SCH (20:09)
[2022-07-31] MEDS: THIAMINE HCL 100 MG TABLET (FP) PO SCH (22:18)
[2022-07-31] MEDS: MELATONIN 5 MG TABLETS PO SCH (22:18)
[2022-07-31] MEDS: METHOCARBAMOL 500 MG TABLET PO PRN (22:19)
[2022-07-31] MEDS: chlordiazePOXIDE HCL 25 MG CAPSULE PO SCH (22:19)
[2022-07-31] MEDS: hydrOXYzine PAMOATE 25 MG CAPSULE (FP) PO PRN (22:19)
[2022-08-01] MEDS: chlordiazePOXIDE HCL 25 MG CAPSULE PO SCH ×4 (05:36→22:15)
[2022-08-01] MEDS ORDERED: NICOTINE 7 MG/24 HOURS TOPICAL PATCH TD SCH (10:00)
[2022-08-01] MEDS: PRENATAL VITAMINS W/ FOLIC ACID TABLET (FP) PO SCH (10:43)
[2022-08-01] MEDS: NICOTINE 14 MG/24 HOURS TOPICAL PATCH TD SCH (10:44)
[2022-08-01 10:49] LABS: POTASSIUM 3.9 mmol/L (3.5-5.1)
[2022-08-01 10:57] LABS: BLOOD UREA NITROGEN 11.2 mg/dL (7-18)
[2022-08-01 10:59] LABS: ALBUMIN 2.9 g/dl (3.4-5.0)
[2022-08-01 11:00] LABS: CREATININE 0.9 mg/dL (0.55-1.3)
[2022-08-01 11:02] LABS: BILIRUBIN,TOTAL 0.4 mg/dL (0.2-1); HEMATOCRIT 35.4 % (35.4-49); HEMOGLOBIN 12.2 GM/dL (11.7-16.9); MCH 34.1 pg (25.7-33.7); MCHC 34.5 g/dl (32.0-35.9); MEAN CELL VOLUME 98.8 fl (80-96); MEAN PLT VOLUME 8.6 fl (7.5-11.1); PLATELET COUNT 217 10^3/uL (134-434); RBC 3.58 M/mm3 (4.00-5.60); RDW 12.2 % (11.9-15.9); TOT PROT 5.6 g/dl (6.4-8.2); WHITE BLOOD COUNT 6.3 K/mm3 (4.0-10.0)
[2022-08-01] MEDS: MELATONIN 5 MG TABLETS PO SCH (22:15)
[2022-08-01] MEDS: THIAMINE HCL 100 MG TABLET (FP) PO SCH (22:15)
[2022-08-02] MEDS: chlordiazePOXIDE HCL 25 MG CAPSULE PO SCH ×4 (05:29→22:05)
[2022-08-02] MEDS: PRENATAL VITAMINS W/ FOLIC ACID TABLET (FP) PO SCH (09:53)
[2022-08-02] MEDS: NICOTINE 14 MG/24 HOURS TOPICAL PATCH TD SCH (09:53)
[2022-08-02] MEDS: MELATONIN 5 MG TABLETS PO SCH (22:05)
[2022-08-02] MEDS: THIAMINE HCL 100 MG TABLET (FP) PO SCH (22:05)
[2022-08-03] MEDS ORDERED: chlordiazePOXIDE HCL 10 MG CAPSULE PO PRN
[2022-08-03] MEDS: chlordiazePOXIDE HCL 10 MG CAPSULE PO SCH ×4 (05:30→22:10)
[2022-08-03] MEDS: PRENATAL VITAMINS W/ FOLIC ACID TABLET (FP) PO SCH (10:05)
[2022-08-03] MEDS: NICOTINE 14 MG/24 HOURS TOPICAL PATCH TD SCH (10:07)
[2022-08-03] MEDS: LIDOCAINE 5% TOPICAL PATCH TP SCH (15:10)
[2022-08-03] MEDS ORDERED: PATIENT'S OWN MEDICATION (NON-FORMULARY) (Lidocaine Patch Removal 1 EACH Each) MC SCH (22:00)
[2022-08-03] MEDS: LIDOCAINE PATCH REMOVAL MC SCH (22:08)
[2022-08-03] MEDS: hydrOXYzine PAMOATE 25 MG CAPSULE (FP) PO PRN (22:09)
[2022-08-03] MEDS: MELATONIN 5 MG TABLETS PO SCH (22:09)
[2022-08-03] MEDS: THIAMINE HCL 100 MG TABLET (FP) PO SCH (22:09)
[2022-08-03] MEDS: METHOCARBAMOL 500 MG TABLET PO PRN (22:10)
[2022-08-04] MEDS: chlordiazePOXIDE HCL 10 MG CAPSULE PO SCH ×2 (05:25→17:56)
[2022-08-04] MEDS: LIDOCAINE 5% TOPICAL PATCH TP SCH ×2 (05:26→16:06)
[2022-08-04] MEDS: PRENATAL VITAMINS W/ FOLIC ACID TABLET (FP) PO SCH (10:17)
[2022-08-04] MEDS: NICOTINE 14 MG/24 HOURS TOPICAL PATCH TD SCH (10:17)
[2022-08-04] MEDS: LIDOCAINE PATCH REMOVAL MC SCH (22:08)
[2022-08-04] MEDS: hydrOXYzine PAMOATE 25 MG CAPSULE (FP) PO PRN (22:09)
[2022-08-04] MEDS: METHOCARBAMOL 500 MG TABLET PO PRN (22:09)
[2022-08-04] MEDS: MELATONIN 5 MG TABLETS PO SCH (22:09)
[2022-08-04] MEDS: THIAMINE HCL 100 MG TABLET (FP) PO SCH (22:09)
[2022-08-05] MEDS: LIDOCAINE 5% TOPICAL PATCH TP SCH (04:08)
[2022-08-05] MEDS ORDERED: chlordiazePOXIDE HCL 10 MG CAPSULE PO ONE (05:00)
[2022-08-05 09:04] VITALS: BP 115/76; PULSE 67; RESP 18; TEMP 97.8
[2022-08-05] MEDS: PRENATAL VITAMINS W/ FOLIC ACID TABLET (FP) PO SCH (10:20)
[2022-08-05] MEDS: NICOTINE 14 MG/24 HOURS TOPICAL PATCH TD SCH (10:20)
== END 2022-08-05 11:42 | disposition home or self-care (01) | DRG 775 ==
LOC: YASAS 13:41 → Y3N 19:03
PROVIDERS: ADMIT Allergy & Immunology; ATTEND Surgery
PROC: HZ2ZZZZ Detoxification Services for Substance Abuse Treatment (ICD-10-PCS; principal; 2022-07-31)
DX: F10.230 Alcohol dependence with withdrawal, uncomplicated (principal); F17.210 Nicotine dependence, cigarettes, uncomplicated; F51.05 Insomnia due to other mental disorder; Z87.820 Personal history of traumatic brain injury
CPT/HCPCS: 36415; 80053; 85027; 86780; 87635

== ENCOUNTER 2023-12-15 16:38 | Inpatient (IN) | payer OTHER ==
[2023-12-15 17:25] VITALS: BMI 20.5
[2023-12-15] MEDS ORDERED: MAG HYDROX/AL HYDROX/SIMETH 30 ML UNIT-DOSE CUP PO PRN (21:00)
[2023-12-15] MEDS ORDERED: POLYETHYLENE GLYCOL (HEALTHYLAX) 3350 17 GM PACKET PO PRN (21:00)
[2023-12-15] MEDS ORDERED: BENZOCAINE/MENTHOL (CHLORASEPTIC ) LOZENGE MM PRN (21:00)
[2023-12-15] MEDS ORDERED: BISMUTH SUBSALICYLATE 524 MG/30 ML PO PRN (21:00)
[2023-12-15] MEDS ORDERED: IBUPROFEN 600 MG TABLET (FP) PO PRN (21:00)
[2023-12-15] MEDS ORDERED: NALOXONE (NYS OPIOID OVERDOSE PROGRAM) 4 MG/0.1 ML SPRAY NS PRN (21:00)
[2023-12-15] MEDS ORDERED: IBUPROFEN 400 MG TABLET (FP) PO PRN (21:00)
[2023-12-15] MEDS ORDERED: MAGNESIUM HYDROX 2400MG/30ML ORAL SUSPENSION 30 ML CUP PO PRN (21:00)
[2023-12-15] MEDS ORDERED: DICYCLOMINE HCL 10 MG CAPSULE PO PRN (21:00)
[2023-12-15] MEDS ORDERED: guaiFENesin 600 MG TABLET.ER (FP) PO PRN (21:00)
[2023-12-15] MEDS ORDERED: P-EPHED 60MG/TRIPROLIDI 2.5MG TABLET PO PRN (21:00)
[2023-12-15] MEDS ORDERED: ONDANSETRON *ODT* 4 MG TABLET SL PRN (21:00)
[2023-12-15] MEDS ORDERED: BENZONATATE 200 MG CAPSULE PO PRN (21:00)
[2023-12-15] MEDS ORDERED: LOPERAMIDE HCL 2 MG CAPSULE PO PRN (21:00)
[2023-12-15] MEDS ORDERED: diazePAM 5 MG TABLET ONE (21:33)
[2023-12-15] MEDS: amLODIPine BESYLATE 5 MG TABLET (FP) PO ONE (21:38)
[2023-12-15] MEDS ORDERED: amLODIPine BESYLATE 5 MG TABLET (FP) ONE (21:55)
[2023-12-15] MEDS: diazePAM 5 MG TABLET PO SCH (22:00)
[2023-12-15] MEDS: hydrOXYzine PAMOATE 25 MG CAPSULE (FP) PO PRN (22:19)
[2023-12-15] MEDS: METHOCARBAMOL 500 MG TABLET PO PRN (22:19)
[2023-12-15] MEDS: MELATONIN 5 MG TABLETS PO SCH (22:19)
[2023-12-15] MEDS: THIAMINE 100 MG TABLET PO SCH (22:19)
[2023-12-16] MEDS: PRENATAL VITAMINS W/ FOLIC ACID TABLET (FP) PO SCH (10:39)
[2023-12-16] MEDS: diazePAM 5 MG TABLET PO PRN (14:34)
[2023-12-16 15:01] LABS: HEMATOCRIT 44.1 % (35.4-49); HEMOGLOBIN 14.5 GM/dL (11.7-16.9); MCH 33.6 pg (25.7-33.7); MCHC 32.9 g/dl (32.0-35.9); MEAN CELL VOLUME 102.1 fl (80-96); MEAN PLT VOLUME 8.7 fl (7.5-11.1); PLATELET COUNT 227 10^3/uL (134-434); RBC 4.32 M/mm3 (4.00-5.60); RDW 15.1 % (11.9-15.9); WHITE BLOOD COUNT 5.2 K/mm3 (4.0-10.0)
[2023-12-16 15:23] LABS: POTASSIUM 3.8 mmol/L (3.5-5.1)
[2023-12-16 15:26] LABS: ALBUMIN 3.4 g/dl (3.4-5.0); BLOOD UREA NITROGEN 6.7 mg/dL (7-18)
[2023-12-16 15:30] LABS: CREATININE 0.9 mg/dL (0.55-1.3)
[2023-12-16 15:32] LABS: BILIRUBIN,TOTAL 0.7 mg/dL (0.2-1); TOT PROT 6.6 g/dl (6.4-8.2)
[2023-12-16] MEDS: MELATONIN 5 MG TABLETS PO SCH (22:06)
[2023-12-17] MEDS: diazePAM 5 MG TABLET PO SCH (05:31)
[2023-12-18] MEDS: diazePAM 5 MG TABLET PO SCH (05:18)
[2023-12-18] MEDS: ACETAMINOPHEN 325 MG TABLET (FP) PO PRN (14:03)
[2023-12-19] MEDS: diazePAM 5 MG TABLET PO ONE (06:00)
[2023-12-19 08:59] VITALS: BP 121/78; PULSE 64; RESP 16; TEMP 98.7
== END 2023-12-19 10:17 | disposition home or self-care (01) | DRG 775 ==
LOC: YASAS 16:38 → Y3N 21:16
PROVIDERS: ADMIT Allergy & Immunology; ATTEND Surgery
PROC: HZ2ZZZZ Detoxification Services for Substance Abuse Treatment (ICD-10-PCS; principal; 2023-12-15)
DX: F10.230 Alcohol dependence with withdrawal, uncomplicated (principal); F19.282 Other psychoactive substance dependence with psychoactive substance-induced sleep disorder; Z87.891 Personal history of nicotine dependence; Z87.820 Personal history of traumatic brain injury; Z56.0 Unemployment, unspecified; Z59.02 Unsheltered homelessness
CPT/HCPCS: 36415; 80053; 80305; 80307; 85027; 86780; 93005; 93010

== ENCOUNTER 2023-12-20 21:34 | Inpatient (IN) | payer OTHER ==
[2023-12-20 22:05] VITALS: BMI 22.7
[2023-12-20] MEDS ORDERED: NALOXONE HCL 0.4 MG/ML VIAL IVPUSH PRN (22:16)
[2023-12-20] MEDS ORDERED: MAG HYDROX/AL HYDROX/SIMETH 30 ML UNIT-DOSE CUP PO PRN (22:16)
[2023-12-20] MEDS ORDERED: POLYETHYLENE GLYCOL (HEALTHYLAX) 3350 17 GM PACKET PO PRN (22:16)
[2023-12-20] MEDS ORDERED: BENZONATATE 200 MG CAPSULE PO PRN (22:16)
[2023-12-20] MEDS ORDERED: BENZOCAINE/MENTHOL (CHLORASEPTIC ) LOZENGE MM PRN (22:16)
[2023-12-20] MEDS ORDERED: MAGNESIUM HYDROX 2400MG/30ML ORAL SUSPENSION 30 ML CUP PO PRN (22:16)
[2023-12-20] MEDS ORDERED: guaiFENesin 600 MG TABLET.ER (FP) PO PRN (22:16)
[2023-12-20] MEDS ORDERED: LOPERAMIDE HCL 2 MG CAPSULE PO PRN (22:16)
[2023-12-20] MEDS: hydrOXYzine PAMOATE 25 MG CAPSULE (FP) PO PRN (23:57)
[2023-12-21] MEDS: MELATONIN 5 MG TABLETS PO SCH
[2023-12-21] MEDS: PRENATAL VITAMINS W/ FOLIC ACID TABLET (FP) PO SCH (10:09)
[2023-12-21] MEDS: THIAMINE 100 MG TABLET PO SCH (21:33)
[2023-12-22] MEDS: MELATONIN 5 MG TABLETS PO SCH (21:05)
[2023-12-23] MEDS: METHOCARBAMOL 500 MG TABLET PO PRN (06:01)
[2023-12-24] MEDS: NALTREXONE HCL 50 MG TABLET PO ONE (14:06)
[2023-12-25] MEDS: NALTREXONE HCL 50 MG TABLET PO SCH (10:15)
[2023-12-25] MEDS: QUEtiapine FUMARATE 50 MG TABLET PO SCH (21:05)
[2023-12-28] MEDS: ACETAMINOPHEN 325 MG TABLET (FP) PO PRN (15:51)
[2024-01-02] MEDS: IBUPROFEN 600 MG TABLET (FP) PO PRN (00:29)
[2024-01-08] MEDS: IBUPROFEN 400 MG TABLET (FP) PO PRN (06:26)
[2024-01-11 06:47] VITALS: BP 154/90; PULSE 91; RESP 17; TEMP 97
[2024-01-11] MEDS: NALOXONE (NYS OPIOID OVERDOSE PROGRAM) 4 MG/0.1 ML SPRAY NS SCH (11:13)
== END 2024-01-11 13:56 | disposition home or self-care (01) | DRG 772 ==
LOC: YASAS 21:34 → Y3W 22:47
PROVIDERS: ADMIT Allergy & Immunology; ATTEND Psychiatry & Neurology Pain Medicine
PROC: HZ42ZZZ Group Counseling for Substance Abuse Treatment, Cognitive-Behavioral (ICD-10-PCS; principal; 2023-12-20)
DX: F10.20 Alcohol dependence, uncomplicated (principal); F12.20 Cannabis dependence, uncomplicated; F19.282 Other psychoactive substance dependence with psychoactive substance-induced sleep disorder; Z87.891 Personal history of nicotine dependence; Z87.820 Personal history of traumatic brain injury; Z56.0 Unemployment, unspecified; Z59.02 Unsheltered homelessness
CPT/HCPCS: 80305; 80307; 82962; 87811

== ENCOUNTER 2024-03-10 17:28 | Inpatient (IN) | payer OTHER ==
[2024-03-10 18:47] VITALS: BMI 23.8
[2024-03-10] MEDS ORDERED: BENZONATATE 200 MG CAPSULE PO PRN (19:01)
[2024-03-10] MEDS ORDERED: guaiFENesin 600 MG TABLET.ER (FP) PO PRN (19:01)
[2024-03-10] MEDS ORDERED: NICOTINE POLACRILEX 2 MG LOZENGE BC PRN (19:01)
[2024-03-10] MEDS ORDERED: NICOTINE POLACRILEX 2 MG GUM BUC PRN (19:01)
[2024-03-10] MEDS ORDERED: LOPERAMIDE HCL 2 MG CAPSULE PO PRN (19:01)
[2024-03-10] MEDS ORDERED: P-EPHED 60MG/TRIPROLIDI 2.5MG TABLET PO PRN (19:01)
[2024-03-10] MEDS ORDERED: BENZOCAINE/MENTHOL (CHLORASEPTIC ) LOZENGE MM PRN (19:01)
[2024-03-10] MEDS ORDERED: IBUPROFEN 400 MG TABLET (FP) PO PRN (19:01)
[2024-03-10] MEDS: THIAMINE 100 MG TABLET PO SCH (21:46)
[2024-03-10] MEDS: MELATONIN 5 MG TABLETS PO SCH (21:46)
[2024-03-10] MEDS ORDERED: MELATONIN 5 MG TABLETS PO SCH (22:00)
[2024-03-11] MEDS: hydrOXYzine PAMOATE 25 MG CAPSULE (FP) PO PRN (01:33)
[2024-03-11 09:20] LABS: CHLORIDE 105 mmol/L (98-107); POTASSIUM 4.3 mmol/L (3.5-5.1); SODIUM 134 mmol/L (136-145)
[2024-03-11 09:24] LABS: HEMATOCRIT 39.8 % (35.4-49); HEMOGLOBIN 13.5 GM/dL (11.7-16.9); MCH 33.7 pg (25.7-33.7); MEAN CELL VOLUME 99.2 fl (80-96); MEAN PLT VOLUME 8.9 fl (7.5-11.1); PLATELET COUNT 259 10^3/uL (134-434); RBC 4.01 M/mm3 (4.00-5.60); RDW 12.6 % (11.9-15.9); WHITE BLOOD COUNT 5.6 K/mm3 (4.0-10.0)
[2024-03-11 09:26] LABS: ANION GAP 1 mmol/L (4-13); BLOOD UREA NITROGEN 19.4 mg/dL (7-18); CO2 28 mmol/L (21-32); CREATININE 1.2 mg/dL (0.55-1.3); GLUCOSE,RANDOM 90 mg/dL (74-106); SGPT/ALT 37 U/L (13-61)
[2024-03-11 09:27] LABS: ALBUMIN 3.7 g/dl (3.4-5.0)
[2024-03-11 09:28] LABS: BILIRUBIN,TOTAL 0.5 mg/dL (0.2-1); TOT PROT 7.1 g/dl (6.4-8.2)
[2024-03-11 09:29] LABS: PH,URINE 6.5 (5.0-8.0); URINE APPEARANCE CLEAR; URINE BILIRUBIN NEGATIVE (NEGATIVE); URINE COLOR YELLOW; URINE GLUCOSE (UA) NEGATIVE (NEGATIVE); URINE KETONE TRACE (NEGATIVE); URINE LEUK ESTERASE NEGATIVE (NEGATIVE); URINE NITRITE NEGATIVE (NEGATIVE); URINE PROTEIN NEGATIVE (NEGATIVE)
[2024-03-11 09:29] LABS: ALK PHOS 64 U/L (45-117); CALCIUM 9.5 mg/dL (8.5-10.1)
[2024-03-11 09:30] LABS: SGOT/AST 28 U/L (15-37)
[2024-03-11] MEDS: PRENATAL VITAMINS W/ FOLIC ACID TABLET (FP) PO SCH (09:52)
[2024-03-11] MEDS: traZODone HCL 50 MG TABLET (FP) PO SCH (21:34)
[2024-03-12] MEDS: hydrOXYzine PAMOATE 25 MG CAPSULE (FP) PO PRN (09:52)
[2024-03-13] MEDS: ACETAMINOPHEN 325 MG TABLET (FP) PO PRN (09:45)
[2024-03-13] MEDS: GABAPENTIN 300 MG CAPSULE PO SCH (15:04)
[2024-03-14] MEDS: traZODone HCL 100 MG TABLET (FP) PO SCH (21:35)
[2024-03-15] MEDS: IBUPROFEN 600 MG TABLET (FP) PO PRN (09:44)
[2024-03-15] MEDS: MAG HYDROX/AL HYDROX/SIMETH 30 ML UNIT-DOSE CUP PO PRN (21:11)
[2024-03-16] MEDS: DOCUSATE SODIUM 100 MG CAPSULE (FP) PO PRN (10:06)
[2024-03-17] MEDS: METHOCARBAMOL 500 MG TABLET PO PRN (09:42)
[2024-03-22] MEDS: CHOLECALCIFEROL (VIT D3) 1,000 UNIT (25 MCG) TABLET PO SCH (11:36)
[2024-03-22] MEDS: GABAPENTIN 300 MG CAPSULE PO SCH (13:16)
[2024-03-22] MEDS: MAGNESIUM HYDROX 2400MG/30ML ORAL SUSPENSION 30 ML CUP PO PRN (13:22)
[2024-03-24] MEDS: POLYETHYLENE GLYCOL (HEALTHYLAX) 3350 17 GM PACKET PO PRN (15:52)
[2024-03-24] MEDS: GABAPENTIN 400 MG CAPSULE PO SCH (21:06)
[2024-03-26] MEDS: DOCUSATE SODIUM 100 MG CAPSULE (FP) PO PRN (21:34)
[2024-04-05 07:06] VITALS: RESP 16; TEMP 97.7
[2024-04-06 06:55] VITALS: BP 118/75; PULSE 71
[2024-04-06] MEDS: NALOXONE (NARCAN) HCL 4 MG/0.1 ML SPRAY NS PRN (17:01)
== END 2024-04-06 18:00 | disposition home or self-care (01) | DRG 772 ==
LOC: YASAS 17:28 → Y5N 20:52
PROVIDERS: ADMIT Allergy & Immunology; ATTEND Psychiatry & Neurology Pain Medicine
PROC: HZ42ZZZ Group Counseling for Substance Abuse Treatment, Cognitive-Behavioral (ICD-10-PCS; principal; 2024-03-10)
DX: F10.20 Alcohol dependence, uncomplicated (principal); F17.210 Nicotine dependence, cigarettes, uncomplicated; F41.9 Anxiety disorder, unspecified; F32.A Depression, unspecified; F51.05 Insomnia due to other mental disorder; E55.9 Vitamin D deficiency, unspecified; K59.00 Constipation, unspecified; M54.50 Low back pain, unspecified; G89.29 Other chronic pain; Z87.820 Personal history of traumatic brain injury; Z59.02 Unsheltered homelessness; Z56.0 Unemployment, unspecified
CPT/HCPCS: 36415; 80053; 80305; 80307; 81003; 82140; 82652; 83735; 85027; 86780; 87811